=== PATIENT | male | born 1935 | race African-American/Black ===

== ENCOUNTER 2017-04-23 08:44 | Emergency (ER) | payer MEDICARE, MEDICAID ==
[~2017-04-23] VITALS: Ht 160 cm; Wt 75.7 kg
[~2017-04-23 08:44] MED LIST: ATEN50TA PO; SIMV20TA6 PO
[2017-04-23 09:07] VITALS: BP 154/80
== END 2017-04-23 09:13 | disposition home or self-care (01) ==
LOC: ER 08:45
DX: B34.9 Viral infection, unspecified (principal); E78.5 Hyperlipidemia, unspecified; I10 Essential (primary) hypertension
CPT/HCPCS: A4606; Z7610